=== PATIENT | male | born 1935 | race Caucasian/White ===

== ENCOUNTER 2018-05-05 22:30 | Emergency (ER) | payer MEDICARE ==
[~2018-05-05 22:30] MED LIST: ALLO300 PO; ARIC10TA PO; ASPI81 PO; ATEN1TAB74 PO; CALTTAB2 PO; CLON1 PO; CYMB60CA PO; DIFL500T PO; GLUC500C56 PO; OMEG1CAP53 PO; PROT40TA PO; ROSU20 PO; SINE10100 PO; TAB-TAB PO; TAMS0.4C67 PO; TYLE500T PO
[2018-05-05 22:44] VITALS: BP 105/65; PULSE 89; RESP 16; TEMP 97.6; O2SAT 98
[2018-05-05] MEDS ORDERED: SINE25TA PO (23:08)
[2018-05-05] MEDS ORDERED: CLON0.5T PO (23:08)
[2018-05-05] MEDS ORDERED: MONT10TA4 PO (23:08)
[2018-05-05] MEDS ORDERED: ARIC10TA9 PO (23:08)
[2018-05-05] MEDS ORDERED: DULO20 PO (23:08)
[2018-05-05] MEDS ORDERED: ROSU10 PO (23:19)
[2018-05-05] MEDS ORDERED: OMEP20TA93 PO (23:19)
[2018-05-05] MEDS ORDERED: TAMS5CAP PO (23:19)
[2018-05-05] MEDS ORDERED: ASPI-516 CHEW (23:19)
[2018-05-05] MEDS ORDERED: IPRASOL INH (23:19)
[2018-05-05] MEDS ORDERED: MEMA1TAB2 PO (23:19)
[2018-05-05] MEDS ORDERED: LEVA.63I NEB (23:19)
[2018-05-05 23:22] VITALS: BP 116/63; PULSE 70; RESP 18; O2SAT 96
--- NOTE | 2018-05-05 23:29 | PD ---
HPI Chief Complaint: Complaint Time Seen by Provider: 23:28 Travel History International Travel<30 days: No Contact w/Intl Traveler<30days: No Traveled to known affect area: No History of Present Illness HPI 82-year-old male presents to the emergency department by private transportation the care of his for evaluation of possible urinary tract infection. states that today for the first time the patient was left with a new [employer]. became concerned that perhaps the [employer] removed his condom catheter in properly or that he may have had some type of injury he was not at home with the patient. Patient is typically minimally verbal can ambulate with assistance with a walker or to transfer but since returning home to the patient she felt that perhaps he was acting slightly different and did not want to get up out of his wheelchair out of bed to transfer with his walker so she became concerned. decided that perhaps his behavior was actually reflecting a urinary tract infection as he has had frequent urinary tract infections and decided to bring him to the emergency department to have his urine checked. 5 states he frequently has urinary urgency and this is a chronic condition so that did not alarm her but because he is only putting out small amounts of urine she thought perhaps he was developing a bladder infection. Patient has had no fever. has not noted him having any chills. 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 Patient also has history of COPD but does not have any recent issues with respiratory illness or shortness of breath. is unable to identify specific exacerbating or alleviating factors. provides most history is patient is minimally conversant. PFSH Past Medical History Narrative Medical COPD CVA hypertension dyslipidemia Parkinson's disease dementia recurrent urinary tract infection; no tobacco use no alcohol use no substance use; nursing notes reviewed Blood Disorders: No Cancer: No Cardiovascular Problems: Yes COPD: Yes Cerebrovascular Accident: Yes (CVA few years ago) Diminished Hearing: No Endocrine: No Gastrointestinal Disorders: Yes GERD: Yes Immune Disorder: No Neurologic: No Parkinson's Disease: Yes Psychiatric: No Reproductive: No Respiratory: Yes (COPD) Tetanus Vaccination: Unknown Influenza Vaccination: No Past Surgical History Abdominal Surgery: Yes Cardiac Surgery: Yes Ear Surgery: Yes Endocrine Surgery: No Eye Surgery: Yes Genitourinary Surgery: Yes Gynecologic Surgery: No Neurologic Surgery: No Oral Surgery: No Pacemaker: No Thoracic Surgery: No Other Surgery: Yes Social History Alcohol Use: No Tobacco Use: No Substance Use: No Allergies-Medications (Allergen,Severity, Reaction): Coded Allergies: gemifloxacin (Verified Allergy, Severe, Hallucinations, 05/05/18) tramadol (Verified Allergy, Severe, Hallucinations, 05/05/18) ceftriaxone (Verified Allergy, Mild, Rash, 05/05/18) Reported Meds & Prescriptions Reported Meds & Active Scripts Active Reported Duoneb (Ipratropium-Albuterol Neb) 0.5-2.5 Mg/3 Ml Neb 1 Nebule INH Q6HR NEB Xopenex Neb (Levalbuterol HCl) 0.63 Mg/3 Ml Neb 0.63 Mg NEB QID Memantine 10 Mg Tab 10 Mg PO BID Crestor (Rosuvastatin Calcium) 10 Mg Tab 10 Mg PO DAILY Aspirin 81 Mg Chew 81 Mg CHEW DAILY Omeprazole 20 Mg Tab 20 Mg PO DAILY Flomax (Tamsulosin HCl) 0.4 Mg Cap 0.4 Mg PO BID Clonazepam 0.5 Mg Tab 0.5 Mg PO BID Cymbalta DR (Duloxetine HCl) 20 Mg Capdr 20 Mg PO DAILY Sinemet (Carbidopa-Levodopa) 25-100 Mg Tab 5 Tab PO DAILY Aricept (Donepezil HCl) 10 Mg Tablet 10 Mg PO BID Montelukast (Montelukast Sodium) 10 Mg Tab 10 Mg PO HS Review of Systems Except as stated in HPI: all other systems reviewed are Neg General / Constitutional: Positive: Weight Loss ( over 2 months, pcp aware), No : Fever, Chills HENT: No: Congestion Cardiovascular: No: Syncope Respiratory: No: Cough, Shortness of Breath Gastrointestinal: Positive: Loss of Appetite (x 2 months, pcp aware), No: Vomiting, Diarrhea Genitourinary: Positive: Frequency, No: Decreased Urinary Output Musculoskeletal: No: Pain Skin: No Rash Neurologic: Positive: Weakness Hematologic/Lymphatic: No: Lymph Node Enlargement Physical Exam Narrative GENERAL: Well-developed well-nourished male in no acute distress no respiratory distress with parkinsonian tremor SKIN: Warm and dry. HEAD: Normocephalic. EYES: No scleral icterus. No injection or drainage. NECK: Supple, trachea midline. No JVD or lymphadenopathy. CARDIOVASCULAR: Regular rate and rhythm without murmurs, gallops, or rubs. RESPIRATORY: Breath sounds equal bilaterally. No accessory muscle use. GASTROINTESTINAL: Abdomen soft, non-tender, nondistended. MUSCULOSKELETAL: No cyanosis, or edema. Patient is able to independently move upper extremities and perform hip knee and ankle flexion extension without difficulty or apparent discomfort radial and dorsalis pedis pulses 2+ to palpation. BACK: Nontender without obvious deformity. No CVA tenderness. Data Data Last Documented VS Vital Signs Date Time Temp Pulse Resp B/P (MAP) Pulse Ox O2 Delivery O2 Flow Rate FiO2 05/05/18 23:22 70 18 116/63 (80) 96 Room Air 05/05/18 22:44 97.6 Orders Orders Urinalysis - C+S If Indicated (05/05/18 23:28) Labs Laboratory Tests Test 05/05/18 23:40 Urine Color YELLOW Urine Turbidity CLEAR Urine pH 5.0 Urine Specific [place] 1.025 Urine Protein NEG mg/dL Urine Glucose (UA) NEG mg/dL Urine Ketones TRACE mg/dL Urine Occult Blood NEG Urine Nitrite NEG Urine Bilirubin NEG Urine Urobilinogen 0.2 MG/DL Urine Leukocyte Esterase NEG Urine RBC 0-3 /hpf Urine WBC 0-2 /hpf Urine Squamous Epithelial Cells 0-5 /hpf Urine Bacteria NONE /hpf Microscopic Urinalysis Comment CATH-CULT NOT IND MDM Medical Decision Making Medical Screen Exam Complete: Yes Emergency Medical Condition: Yes Medical Record Reviewed: Yes Interpretation(s) UA cath specimen: wnl; no cx indicated Differential Diagnosis UTI, urinary retention, urethritis, musculoskeletal sprain strain injury, generalized weakness Narrative Course Pleasant 82-year-old male essentially nonverbal status post CVA with dementia depression and Parkinson's disease in no acute or apparent distress afebrile with otherwise normal range vital signs concerned of UTI has been using condom catheter will obtain cath specimen and also empty bladder to evaluate for urinary retention. No evidence of urinary retention cath specimen resulted and found to be normal Patient now reports that she is concerned that perhaps there is something wrong with his legs may be an injury because he did not want to stand to transfer from bed to wheelchair to come to the hospital so she had to muscle him to the chair on her own as he would not use his walker and that did seem to want to put his feet on the ground therefore will reassess patient although he moves his upper extremity and lower extremities independently and fairly smoothly and without antalgic movement will attempt to see his ambulatory skills with walker here in the emergency department. is satisfied urinalysis is normal no evidence of urinary retention and patient is able to weight-bear to transfer with walker assistance. Patient's does not desire any further medical evaluation or intervention therefore is encouraged to follow-up closely with the patient's primary care provider or should she change her mind she is to return with the patient for further evaluation. Patient able to ambulate with walker in the exam room; is pleased with patient's ability to ambulate as per his baseline with walker in the emergency department. No further evaluation desired by the at this time therefore will defer any lab work or imaging study that does not appear to be indicated at this moment as patient appears well-hydrated strength appears to be at his baseline and her original concern of urinary tract infection has been alleviated by cath specimen identifying no urinary tract infection. is encouraged to use dietary protein shake supplements to help with his weight gain if he can tolerate the supplements such as Ensure. also reports she is very pressured by her step children, scrutinizing her care of her and identifies them to be quite critical of her although none of them live near her and her ; therefore she is very concerned should anything happen she will be blamed that her care was not adequate based on her stepchildren's opinions. Diagnosis Primary Impression: Weakness Referrals: Primary Care Physician 1 day Patient Instructions: General Instructions Additional Instructions: Follow-up with primary care provider Return to the emergency department for concerns or change in condition Continue current medications as presently prescribed Increase fluid hydration encourage supplemental dietary intake with Ensure or other protein shakes as tolerated Med/Other Pt SpecificInfo: No Change to Meds Disposition: 01 DISCHARGE HOME Condition: Stable Estrella Evans MD May 05, 2018 23:29
[2018-05-05 23:49] LABS: BILIRUBIN, URINE NEG (NEG); BLOOD, URINE NEG (NEG); GLUCOSE,URINE NEG (NEG); KETONE, URINE TRACE mg/dL (NEG); NITRITE,URINE NEG (NEG); URINE COLOR YELLOW (YELLW/STRAW); URINE LEUKOCYTE ESTERASE NEG (NEG)
[2018-05-05 23:53] LABS: RBC, URINE 0-3 /hpf (0-3); SQUAMOUS EPITHELIAL CELL URINE 0-5 /hpf (0-5); WBC, URINE 0-2 /hpf (0-5)
[2018-05-06 01:17] VITALS: BP 145/74; PULSE 74; RESP 18; O2SAT 97
== END 2018-05-06 01:18 | disposition home or self-care (01) ==
LOC: PHED 22:30
DX: R53.1 Weakness (principal); G20 Parkinson's disease; F02.80 Dementia in other diseases classified elsewhere, unspecified severity, without behavioral disturbance, psychotic disturbance, mood disturbance, and anxiety; F32.9 Major depressive disorder, single episode, unspecified; J44.9 Chronic obstructive pulmonary disease, unspecified; I10 Essential (primary) hypertension; E78.5 Hyperlipidemia, unspecified; K21.9 Gastro-esophageal reflux disease without esophagitis; Z86.73 Personal history of transient ischemic attack (TIA), and cerebral infarction without residual deficits; Z79.82 Long term (current) use of aspirin; Z79.899 Other long term (current) drug therapy; Z88.8 Allergy status to other drugs, medicaments and biological substances
CPT/HCPCS: 81001; 99283